=== PATIENT | female | born 1970 | race Caucasian/White ===

== ENCOUNTER 2020-04-16 18:18 | Emergency (ER) | payer OTHER ==
[~2020-04-16] VITALS: Ht 152.4 cm; Wt 68.0 kg
== END 2020-04-16 21:00 | disposition home or self-care (01) ==
LOC: ER 18:18
DX: M54.41 Lumbago with sciatica, right side (principal)

== ENCOUNTER 2021-04-19 16:11 | Emergency (ER) | payer OTHER ==
[~2021-04-19] VITALS: Ht 152.4 cm; Wt 68.0 kg
== END 2021-04-19 17:29 | disposition home or self-care (01) ==
LOC: ER 16:11
DX: L02.213 Cutaneous abscess of chest wall (principal)